=== PATIENT | male | born 2005 | race Caucasian/White ===

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

== ENCOUNTER 2025-07-27 09:47 | Outpatient (AMB) | payer OTHER, SELFPAY ==
--- NOTE | 2025-07-27 10:02 | A.OFFVIS_ITS ---
Vital Signs 07/27/25 10:08 Height 5 ft 11 in Weight 280 lb BMI 39.0 Intake Visit Reasons: OV- Lower Back Pain Intake Note: Quinton is a 19 year old male who presents today as a new patient for lower back pain. Patient was referred by his PCP. Patient states that for the past two years he has had lower back pain and groin pain. He states that the right sided groin pain was constant but then turned into back pain. He reports that he did have a X Ray's. At today's visit he states that he has attended physical therapy and he is continuing with his at home exercises. He states that he is currently on light duty at work which going well but is still having issues with some of his daily tasks. Patient added that over two years he had a pulling sensation on the right side of his stomach and radiated into the right side of his groin. He states that after his Urgent care visit 6 months ago he was given a steroid pills and ever since then he felt that his lower back pain has increased. Allergies Seasonal Allergies Adverse Reaction (Intermediate, Verified 07/27/25 10:09) Runny Nose Medication List - Last Reconciled 07/27/25 by Patricia Akbar MD albuterol sulfate 90 mcg/actuation (Ventolin HFA) inhalation cetirizine 10 mg PO DAILY fluticasone propionate 50 mcg/actuation 1 spray intranasal BID HPI Comments Details: 2 years ago, started in lower abdominal area and groin area. Described as tension and pain. Since moved to thigh, calf and lower back. Denies inciting injuries. Previous right knee fracture 2022 from wrestling. Knee disclocations. Has not wrestled since. High school lacrosse. Last PT 4 months ago. [facility] Social History (Updated 07/27/25 @ 10:10 by Antonella Grossman) Alcohol intake: current Alcohol intake frequency: holidays/special occasions only Patient Tobacco Use Status: Never used Tobacco Substance Use Type: Marijuana Current occupational status: employed Current occupation: Full- Pool Tech Review of Systems Const All systems reviewed & are unremarkable except as noted in HPI and below Physical Exam Exam Exam: Constitutional: Patient appears to be in no acute distress, well nourished and well developed. Patient was appropriately conversant and oriented. Good historian. MSK: No specific abnormalities found on inspection of the spine and all extremities. No pain with palpation over the lumbar area. Mild tenderness over right SI joint. Mild tenderness over right GT. No tenderness over right groin, abdominal wall, groin tendons. Lumbar ROM was full. Bilateral hip, knee and ankle ROM WNL. No ligamentous laxity or crepitance. No increased effusion. Straight-leg raising test negative. FABERE test negative. Strength is 5/5 in all muscle groups tested. No increased tone noted. Neurological: Neurologic examination of the upper and lower extremities was nonfocal with intact sensation, muscle stretch reflexes and without focal motor deficits . Smith?s negative bilaterally. Babinski was down going bilaterally. Clonus was negative. Gait is non-antalgic without loss of balance. Vital Signs: BMI result Body Mass Index 39.0 Results Reviewed Results Reviewed: I independently reviewed the results of the following: Lumbar x-ray as above I reviewed records from the following: PCP Assessment & Plan Assessment & Plan (1) History of patellar fracture: Code(s): Z87.81 - Personal history of (healed) traumatic fracture Category: Medical (2) Sacroiliac joint dysfunction of right side: Code(s): M53.3 - Sacrococcygeal disorders, not elsewhere classified Category: Medical (3) Right groin pain: Code(s): R10.31 - Right lower quadrant pain Category: Medical Plan Chronic right groin pain. History of right knee injury. Some tenderness over right SI joint on exam today. Lumbar x-rays done today showed preserved disc spaces. Await final reading. Very low suspicion that this is lumbar spine related. Getting right hip x-ray to rule out any hip joint pathology. Right knee x-ray due to previous history, question need for referral to ortho. Getting SI joint x-rays as well. Assessment and plan discussed with patient, and patient was agreeable. All questions were answered thoroughly. Follow up after results. Patricia Akbar MD, COLEMAN Board Certified, [place] Board of Physical Medicine and Rehabilitation (ABPMR) Board Certified, [place] Board of Electrodiagnostic Medicine (ABEM) Orders: Orders XR lumbar spine 2-3V Today M54.9 - Dorsalgia, unspecified XR hip RT min 2V Today M25.551 - Pain in right hip XR knee RT 3V Today Z87.81 - Personal history of (healed) traumatic fracture XR sacroiliac joint min 3V Today M53.3 - Sacrococcygeal disorders, not elsewhere classified Coding Level of Care Code New Pt Level 4 (06391) Diagnoses History of patellar fracture Z87.81 Sacroiliac joint dysfunction of right side M53.3 Right groin pain R10.31
[2025-07-27 10:08] VITALS: BMI 39.0
--- OUTSIDE RECORDS SUMMARY | 2025-07-27 11:18 | XMS_ITS | Encounter Summary ---
Author Organization [facility] Address [address] [place] [address] Phone Care Team Providers Care Machine Bobbin Winder Name Role Phone Gabriela Brooks DO Primary Care Provider [phone] Encounter Details Date Type Department Care Team (Late st Contact Info) Description 08/07/2011 Documentation [facility] [place] Medicine [address] [place], [place] [phone] Family Medicine, Physician [address] [place], [place] [address] Social History Tobacco Use Types Packs/Day Years Used Date Smoking Tobacco: Never Assessed Sex and Gender Information Value Date Recorded Sex Assigned at Not on file Legal Sex Male 5:22 PM EDT Gender Identity Not on file Sexual Orientation Straight 03/10/2023 9: 40 AM EDT documented as of this encounter Plan of Treatment Not on file documented as of this encounter Visit Diagnoses Not on filedocumented in this encounter Care Teams Machine Bobbin Winder Relationship Specialty Start Date End Date Gabriela Brooks DO [address] [facility] [place] [address] PCP - General 05/21/17 documented as of this encounter
--- OUTSIDE RECORDS SUMMARY | 2025-07-27 11:18 | XMS_ITS | Encounter Summary ---
Author Organization [facility] Address [address] [place] [address] Phone Care Team Providers Care Critical Power Install Technician Name Role Phone Gabriela Brooks DO Primary Care Provider [phone] Encounter Details Date Type Department Care Team (Late st Contact Info) Description 02/08/2013 Documentation [facility] [place] Family Medicine [address] [place], [place] [id number] Family Medicine, Physician [address] [place], [place] [address] Social History Tobacco Use Types Packs/Day Years [...] on filedocumented in this encounter Care Teams Critical Power Install Technician Relationship Specialty Start Date End Date Gabriela Brooks DO [address] [facility] [place] [address] PCP - General 05/21/17 documented as of this encounter
--- OUTSIDE RECORDS SUMMARY | 2025-07-27 11:18 | XMS_ITS | Clinical Summary ---
Author Organization [facility] Address [address] [place] [phone] Phone Care Team Providers Care Renewal Specialist Name Role Phone ToddGabriela tyler Primary Care Provider [phone] Allergies Active Allergy Reactions Criticality Noted Date Comments Environmental 05/01/2021 seasonal Medications Spacer/Aero-Holdi ng Chambers (AEROCHAMBER PLUS RENEE-VU) misc 5 Active cetirizine 10 MG tabletIndications :Seasonal allergic rhinitis due to pollen Take 1 tablet (10 mg total) by mouth once daily. 30 tablet 6 3 Active Ventolin HFA 108 (90 Base) MCG/ACT inhalerIndication s:Mild intermittent asthma without complication Inhale 2 puffs every 4 (four) hours as needed for wheezing or shortness of breath. 1 Units 5 06/04/20 26 Active fluticasone (Flonase) 50 MCG/ACT nasal sprayIndications: Seasonal allergic rhinitis due to pollen Administer 2 sprays into each nostril daily. 1 Units 6 5 06/04/20 26 Active Active Problems Problem Noted Date Diagnosed Date Chronic right-sided low back pain with right-racquel ed sciatica 06/04/2025 Assessment & Plan (06/04/2025 2:25 PM EDT): He had urgent care visit, x-rays and was referred to PT; I saw him for a follow- up visit and recommended that he resume PT since he only went for the initial eval He is doing somewhat better but has not gotten back into PT yet Joint laxity of left knee 06/04/2025 Assessment & Plan (06/04/2025 2:26 PM EDT): Either knee has been problematic but currently the left knee is most problematic Again-probably needs to see Ortho and needs PT Migraine without aura and wi thout status migrainosus, not intractable 10/06/2018 Overview (07/11/2021): Saw Dr. Winter- last seen On prn imitrex 50mg with 500mg motrin Consider re-trial topamax Previously: was on amitryp. 10mg(previous plan per Dr. Barfield) Assessment & Plan (03/10/2023 9:39 AM EDT): Motrin prn and sleeps it off Has had as needed Imitrex in the past Assessment & Plan (12/29/2021 11:29 AM EDT): Gets migraines if he does not stay hydrated and then exercises Assessment & Plan (07/11/2021 6:26 PM EDT): Migraines have been quiet- great! Assessment & Plan (05/02/2021 9:15 AM EDT): Not sure if recent HAs more related to suboptimal control of allergies Will see if he gets better w/ daily zyrtec and adding flonase Recheck in SEPT Assessment & Plan (03/24/2021 2:00 PM EDT): Has not needed imitrex in a long time Assessment & Plan (11/16/2020 12:49 PM EST): Not a problem this past year Autism spectrum disorder 07/29/2018 Overview (03/10/2023): HS grad 2022 Working in [employer] Had NS sindy @ [employer] 2017- dx with Autism; has new IEP; had school psychoed eval 2018- see pg 12. Assessment & Plan (12/29/2021 11:28 AM EDT): Wants to study operational engineering Plans [employer] Assessment & Plan (07/30/2018 10:10 AM EDT): I reviewed his records- I do not have a copy of this eval and mom will get it to me Tourette syndrome 01/14/2017 Overview (11/16/2020): Saw Dr. Winter/Neurol- no meds for tics FU 3 mo; get 504 plan for tics Assessment & Plan (03/10/2023 9:38 AM EDT): Tics are not problematic at the moment Not taking any meds and no longer seeing neurology Assessment & Plan (03/24/2021 1:59 PM EDT): Stable and maybe a bit less per teen Assessment & Plan (11/16/2020 12:48 PM EST): Appear stable and not bothersome No seeing neurol @ the moment ADHD (attention deficit hype ractivity disorder), combined type 06/19/2016 Overview (12/29/2021): Off all meds Was on Vyvanse and clonidine and yousuf Saw [facility] for meds/therapy; has ODD- had ICC partner; partial program [facility] 2018- DCed on topamax- did not tolerate Assessment & Plan (03/10/2023 9:39 AM EDT): Graduating from high school this year Has not been on meds for several years now Will be working in [email or web address] May consider going to [employer] at some point Assessment & Plan (12/29/2021 11:28 AM EDT): School going well- off meds for quite some time now Assessment & Plan (11/16/2020 12:47 PM EST): He is doing great w/ remote learning- less distractions Straight As Has a new job too! Off all psych meds! Assessment & Plan (07/30/2018 10:07 AM EDT): Is IHT is through [facility]; he is getting new therapist through [facility] Mild intermittent asthma without complication Overview (05/02/2021): Prn proair Off singulair and doing great Referred to [facility] in the past Assessment & Plan (06/04/2025 2:26 PM EDT): As needed Ventolin refilled Assessment & Plan (03/10/2023 9:38 AM EDT): Refilled as needed albuterol Uses inhaler infrequently Assessment & Plan (12/29/2021 11:29 AM EDT): +exercise induced signs and symptoms Try pre-exercise proair tx before sports- when he is cleared to return by ortho Assessment & Plan (05/02/2021 9:13 AM EDT): RFed proair for the schoolyear Assessment & Plan (11/16/2020 12:48 PM EST): No flares during pandemic Few exposures Inc singulair dose for age Assessment & Plan (08/07/2019 2:48 PM EDT): Mom req singulair RF- reports he has been compliant with taking it Allergic rhinitis 12/30/2012 Overview (07/11/2021): Trees, grass, pollen Zyrtec and flonase Assessment & Plan (03/10/2023 9:39 AM EDT): Refilled Zyrtec and Flonase Assessment & Plan (07/11/2021 6:26 PM EDT): Cont zyrtec and flonase daily Assessment & Plan (05/02/2021 9:15 AM EDT): Take zyrtec daily Added flonase Hoping HAs improve Resolved Problems Problem Noted Date Diagnosed Date Resolved Date Acute pain of right knee 11/23/2021 Overview (01/10/2022): Saw [facility] MAR22- MRI done, brace Rx'ed for when active, PT course advised, return to activities as tolerated, FU prn Assessment & Plan (12/29/2021 11:27 AM EDT): Needs to FU w/ Alisa on MRI and ?clearance to sports noted need for clearance by ortho on CAMILLE form Psychosocial stressors 03/17/202106/04 Overview (04/17/2022): JUN21: maternal great aunt has temporary custody See Luz Cazares calling for an update- 51A ( is a follow up to a report given to [facility] to prove or disprove alligation) PE reviewed. Nutrition referral advised. MICHELE chase 10/16/21- [facility] medical update; Leigh 04/17/22 - Leigh calling for medical update, update given. Assessment & Plan (03/10/2023 9:39 AM EDT): We will continue to live with aunt after high school graduation Assessment & Plan (12/29/2021 11:28 AM EDT): Doing well living w/ great aunt Not seeing mom- by choice Assessment & Plan (12/24/2021 9:42 AM EDT): 12/24/21 Leigh Merino [facility] Reymundo Wart Office calling [phone] -looking for a medical update / requested date of last PE - informed of pending PE as well Assessment & Plan (07/11/2021 6:27 PM EDT): Seems to be adjusting to school well Does not have contact w/ mom @ the moment Assessment & Plan (05/02/2021 9:18 AM EDT): 30d screen- things are good living w/ his aunt so far Assessment & Plan (03/24/2021 2:06 PM EDT): Teen is adjusting well to living w/ great aunt Updated his current med list He is doing great as far as psych and chronic med conditions go Off daily asthma meds Migraines infreq Tics are stable and maybe a bit better Needs 30d screen in a month Will need Menactra then Psychosocial stressors 01/08/202011/15 Overview (01/08/2020): Edelmira Farfan from [facility] office is calling on an active 51A. Update given. JL 01/08/2020 Joint pain of lower extremity 08/20/2018 11/15/2020 Overview (08/20/2018): Saw Dr. Tilley Rheum- re-referred back Assessment & Plan (08/20/2018 8:22 AM EST): Mom reports he was lost to F/U with Dr. Tilley sev years ago and that LE joint pains are still a recurr problem though teen states they not not been bothering him over the last 3mo. There is a strong FH of rheum and autoimm disease. Will refer back to Rheum. Acne vulgaris 07/29/2018 11/15/2020 Overview (07/30/2018): benzaclin Rx Assessment & Plan (07/30/2018 10:09 AM EDT): Mild case- DC grapefruit wash- too irritating; use Dove soap instead; add benzaclin gel 1-2x/day; consider retin A cream addition if worsens; Nocturnal enuresis 01/26/2018 Overview (10/16/2018): DDAVP rx by partial program 2017; seeing [facility]- cleanout and daily miralax ordered for constip on KUB; rec alarm; consider ditropan and prn ddavp; recheck in 6w.- Saw local urol previously Assessment & Plan (08/20/2018 8:19 AM EST): He had lots of notes on his research today. Not sure if any of these treatments are being used- consult with [facility] Urol to review what may be possible evidence based options. Anxiety 01/03/2014 12/29/2021 Overview (11/15/2020): Off all meds Saw Alonso Martinez psych med provider @ [facility]- on lexipro; prn hydroxyzine Assessment & Plan (11/15/2020 3:48 PM EST): Off all meds! Assessment & Plan (09/09/2017 8:31 AM EST): He was DCed from [facility] d/t no shows but now back in getting therapy and sees Mera Martinez for meds for ADD and anxiety; there have been issues with bullying on schoolbus- school has suspended the bullies and further action is pending- mom reports the DA is involved Encounters Date Type Department Care Team Description 07/18/[address] [address] Gabriela Brooks DO ortho RF 06/12/2025 Results Follow-Up [facility] [address] [place] [address] Quita Zamarripa LPN 06/04/2025 1:15 PM EDT Office Visit [address] [phone] Gabriela Brooks DO Well adult exam (Primary Dx); Screening for chlamydial disease; Need for vaccination; Mild intermittent asthma without complication; Encounter for screening examination for sexually transmitted disease; Dietary counseling and surveillance; Exercise counseling; Seasonal allergic rhinitis due to pollen; Chronic right-sided low back pain with right-sided sciatica; Joint laxity of left knee 05/10/2025 8:00 AM EDT Office Visit [facility] [address] [address] Gabriela Brooks DO Chronic right-sided low back pain with right-sided sciatica (Primary Dx) from Last 3 Months Immunizations Immunization Administration Dates Next Due DTaP 5 2008, 6,06/18/2005,05/04,03/23/2005 HPV Vaccine 9 Valent 05/05/2017,06/19/2016,05/01 Hep A, ped/adol 11/14/2014,01/03/2014 Hep B, ped/adol 07/29/2018, 5,05/04/2005,12/10 Hib (PRP-T) 03/18/2006, 5,05/04/2005,03/23 IPV 06/12/2009, 5,05/04/2005,03/23 Influenza Split 07/08/2012,07/01/2011 Influenza, injectable, quadrivalent 11/14/2014 Influenza, injectable, quadr ivalent, preservative free 07/11/2021,06/21/2020,08/07/2019,07/29,09/08/2017,06/19/2016,08/21/2015 ,07/19/2013 Influenza, injectable, trivalent 11/20/2009 Influenza, injectable, triva lent, preservative free 06/04/2025,06/02/2024 Influenza, intranasal, trivalent 06/30/2010 MMR 2008,2005 Meningococcal Conj (Menactra) MCV4P 05/01/2021,0 05/01/2016 Pneumococcal Conjugate 2005,2004,05/04/2005,03/23 Tdap 05/01/2016 Varicella 2008,2005 Family History Medical History Relation Name Comments Anxiety disorder Father Gricelda Asthma Father Gricelda Diabetes Father Gricelda Heart failure Father Gricelda Hyperlipidemia Father Gricelda Hypertension Father Gricelda Kidney failure Father Gricelda Neuropathy Father Gricelda Obesity Father Gricelda Heart attack Maternal Grandfather Heart defect Maternal Grandfather Lupus Maternal Grandmother Anxiety disorder Mother Shayla Bipolar disorder Mother Shayla Depression Mother Shayla Obesity Mother Shayla Rheum arthritis Mother Shayla Multiple sclerosis Mother's Sister Heart disease Paternal Grandmother Relation Name Status Comments Father Gricelda Alive Father: Asthma Maternal Grandfather Maternal Grandmother Alive Sjogren s syndrome Mother Shayla Alive Mother: Rheumat oid arthritis, anxiety/depression Mother's Sister Other No family histo ry of Thrombophilia, Family history of Cancer, colon, Family history of Diabetes mellitus, Family history of Obesity, Family history of cardiac, Family history of arthritis, Family history of Bipolar disorder Paternal Grandfather Alive Paternal Grandmother Alive Social History Tobacco Use Types Packs/Day Years Used Date Smoking Tobacco: Never Smokeless Tobacco: Never Hunger/Food Answer Date Recorded In the last 12 months, did y ou or your family ever eat less than you felt you should because there wasn't enough money for food? No 06/04/2025 Stable Housing Answer Date Recorded Are you worried that in the next 2 months you may not have stable housing? No 06/04/2025 Transportation Concerns Answer Date Rec orded In the last 12 months, have you or your family ever had to go without healthcare because you didn't have a way to get there? No 06/04/2025 Hazards in Home Answer Date Recorded Think about the place you li ve. Do you have problems with any of the following? Pests (mice or roaches), mold, no/not working smoke detectors, water leaks, no window guards. No 2024 Financing Utilities Answer Date Recorde d In the last 12 months, has t he electric, gas, oil, or water [employer] threatened to shut off your services in your home? No 06/04/2025 Safety at Home Answer Date Recorded Are you or your family worried about feeling saf e in your home? No 06/04/2025 Outside Support Answer Date Recorded Do you feel that you need mo re support from other people or programs to help you care for yourself or your family? No 06/04/2025 Understanding Health Concerns Answer Da te Recorded Do you need help understandi ng your or your child's healthcare needs (diagnosis, medications, plan, etc.)? No 06/04/2025 Financing Health Concerns Answer Date R ecorded In the last 12 months, was t here a time when your child needed to see a doctor or get medications or supplies but could not because of cost? No 06/04/2025 Missing School or Work Answer Date Benito rded Did you or your child miss s chool or work because of a health problem that could have been avoided? No 06/04/2025 Child Education Answer Date Recorded Do you have concerns about y our/your child's learning or behavior in school, preschool, or daycare? No 06/04/2025 Sex and Gender Information Value Date Recorded Sex Assigned at Not on file Legal Sex Male 5:22 PM EDT Gender Identity Not on file Sexual Orientation Straight 03/10/2023 9: 40 AM EDT Last Filed Vital Signs Vital Sign Reading Time Taken Comments Blood Pressure 109/76 06/04/2025 1:16 PM EDT Pulse 102 06/04/2025 1:16 PM EDT Temperature 36.9 C (98.5 F) 06/04/2025 1:16 PM EDT Respiratory Rate 18 09/08/2017 2:44 PM EST Oxygen Saturation - - Inhaled Oxygen Concentration - - Weight 130 kg (287 lb) 06/04/2025 1:16 PM EDT Height 180.3 cm (5' 11 ) 06/04/2025 1:16 PM EDT Body Mass Index 40.03 06/04/2025 1:16 PM EDT Plan of Treatment Health Maintenance Due Date Last Done Comments Men B Vaccine (1 of 2 - Standard) 2020 COVID-19 Vaccine ( - 2024-2 6 season) 2025 DTaP,Tdap,and Td Vaccines (7 - Td or Tdap) 05/01/2026 05/01/2016, 2008, 03/18/2006, Additional history exists Pneumococcal Vaccine Completed 2005, 06/18/2005, 05/04/2005, Additional history exists HIB Vaccines Completed 03/18/2006, 05/2005, 05/04/2005, Additional history exists MMR Vaccines Completed 2008, 2005 Varicella Vaccines Completed 2008, 2005 IPV Vaccines Completed 06/12/2009, 05/2005, 05/04/2005, Additional history exists Hepatitis A Vaccines Completed 11/14/2014, 01/04/20 14 HPV Vaccines Completed 05/05/2017, 06/2016, 05/01/2016 Hepatitis B Vaccines Completed 07/29/2018, 06/18/2005, 05/04/2005, Additional history exists Meningococcal Vaccine Completed 05/01/2021, 016 Influenza Vaccines Completed 06/04/2025, 0 06/02/2024, 07/11/2021, Additional history exists Procedures * Due to [place] [employer] law, this organization might not be sharing sensitive test results. Procedure Name Priority Date/Time Associated Diagnosis Comments CHLAMYDIA AND GONORRHEA, AMPLIFIED Routine 06/04/2025 1:56 PM EDT Screening for chlamydial disease BRIEF BEHAVIORAL ASSESSMENT - NORMAL(PSC,PHQ9,VAND ERBILT,ETC) Routine 06/04/2025 1:30 PM EDT Well adult exam EPSDT - ADDITIONAL SERVICES FOR STATE FUNDED INSURANCE Routine 06/04/2025 1:30 PM EDT Well adult exam from Last 3 Months Results * Due to [place] [employer] law, this organization might not be sharing sensitive test results. * Chlamydia and Gonorrhoea, Amplified (06/04/2025 1:56 PM EDT) C trach JOHAN Negative Negative [facility] N gonorrhoeae JOHAN Negative Negative [facility] Urine (Urine) 06/04/2025 1:5 6 PM EDT 06/04/2025 Comment:Urine Narrative [facility] - 06/05/2025 5:05 PM EDT Performed at: 01 - [facility] [address], [address], [place], [place] [id number] Skills Auditor: Hu Colunga MD, Phone: [phone] us Gabriela Brooks DO LAB MICROBIOLOGY - GENERAL ORDER GUILLERMO Final Result [facility] [address] [place] [address] from Last 3 Months Insurance [facility] NON PCC [facility] Care Teams Renewal Specialist Relationship Specialty Start Date End Date Gabriela Brooks DO [address] [place] [place] [address] PCP - General 05/21/17
--- OUTSIDE RECORDS SUMMARY | 2025-07-27 11:18 | XMS_ITS | Encounter Summary ---
Author Organization [facility] Address [address] [place] [address] Phone Care Team Providers Care Agricultural Equipment Design Engineer Name Role Phone Gabriela Brooks DO Primary Care Provider [phone] Encounter Details Date Type Department Care Team (Late st Contact Info) Description 02/26/2015 Documentation [facility] [place] [address] [place], [place] [id number] Family Medicine, Physician [address] [place], [place] 222561 Social History Tobacco Use Types Packs/Day Years [...] on filedocumented in this encounter Care Teams Agricultural Equipment Design Engineer Relationship Specialty Start Date End Date Gabriela Brooks DO 150 [facility] [place] [address] PCP - General 05/21/17 documented as of this encounter
--- OUTSIDE RECORDS SUMMARY | 2025-07-27 11:18 | XMS_ITS | Encounter Summary ---
Author Organization [facility] Address [address] [place] [address] Phone Care Team Providers Care Record Press Tender Name Role Phone Gabriela Brooks DO Primary Care Provider [phone] Encounter Details Date Type Department Care Team (Late st Contact Info) Description 01/30/2014 Documentation [facility] [place] [address] [place], [place] [id number] Family Medicine, Physician [address] [place], [place] 739841 Social History Tobacco Use Types Packs/Day Years [...] on filedocumented in this encounter Care Teams Record Press Tender Relationship Specialty Start Date End Date Gabriela Brooks DO 150 [facility] [place] [address] PCP - General 05/21/17 documented as of this encounter
--- OUTSIDE RECORDS SUMMARY | 2025-07-27 11:18 | XMS_ITS | Encounter Summary ---
Author Organization [facility] Address [address] [place] [address] Phone Care Team Providers Care Digital Associate Media Director Name Role Phone Gabriela Brooks DO Primary Care Provider [phone] Encounter Details Date Type Department Care Team (Late st Contact Info) Description 01/05/2011 Documentation [facility] [place] [address] [place], [place] [id number] Family Medicine, Physician [address] [place], [place] 949211 Social History Tobacco Use Types Packs/Day Years [...] on filedocumented in this encounter Care Teams Digital Associate Media Director Relationship Specialty Start Date End Date Gabriela Brooks DO 150 [facility] [place] [address] PCP - General 05/21/17 documented as of this encounter
--- OUTSIDE RECORDS SUMMARY | 2025-07-27 11:18 | XMS_ITS | Encounter Summary ---
Author Organization [facility] Address [address] [place] [address] Phone Care Team Providers Care Senior Technical Business Analyst Name Role Phone Gabriela Brooks DO Primary Care Provider [phone] Encounter Details Date Type Department Care Team (Late st Contact Info) Description 11/15/2014 Documentation [facility] [place] [address] [place], [place] [phone] Family Medicine, Physician [address] [place], [place] 573211 Social History Tobacco Use Types Packs/Day Years [...] on filedocumented in this encounter Care Teams Senior Technical Business Analyst Relationship Specialty Start Date End Date Gabriela Brooks DO 150 [facility] [place] [address] PCP - General 05/21/17 documented as of this encounter
--- OUTSIDE RECORDS SUMMARY | 2025-07-27 11:18 | XMS_ITS | Encounter Summary ---
Author Organization [facility] Address [address] [place] [address] Phone Care Team Providers Care Clinical Cytopathologist Name Role Phone Gabriela Brooks DO Primary Care Provider [phone] Encounter Details Date Type Department Care Team (Late st Contact Info) Description 04/05/2012 Documentation [facility] [place] Medicine [address] [place], [place] [phone] Family Medicine, Physician [address] [place], [place] 772641 Social History Tobacco Use Types Packs/Day Years [...] on filedocumented in this encounter Care Teams Clinical Cytopathologist Relationship Specialty Start Date End Date Gabriela Brooks DO 150 [facility] [place] [address] PCP - General 05/21/17 documented as of this encounter
--- OUTSIDE RECORDS SUMMARY | 2025-07-27 11:18 | XMS_ITS | Encounter Summary ---
Author Organization [facility] Address [address] [place] [address] Phone Care Team Providers Care Sponge Buffer Name Role Phone Gabriela Brooks DO Primary Care Provider [phone] Reason for Visit * Reason Comments Med Refill Encounter Details Date Type Department Care Team (Late st Contact Info) Description 03/03/2019 Refill [facility] [place] [address] [place] [address] Roula Altamirano MD 150 [place] [address] Mild intermittent asthma without complication Social History Tobacco Use Types Packs/Day Years Used Date Smoking Tobacco: Never Smokeless Tobacco: Never Hunger/Food Answer Date Recorded No 10/29/2018 Stable Housing Answer Date Recorded 0 10/29/2018 Transportation Concerns Answer Date Rec orded No 10/29/2018 Hazards in Home Answer Date Recorded No 10/29/2018 Financing Utilities Answer Date Recorde d Yes 10/29/2018 Safety at Home Answer Date Recorded No 10/29/2018 Outside Support Answer Date Recorded No 10/29/2018 Understanding Health Concerns Answer Da te Recorded No 10/29/2018 Financing Health Concerns Answer Date R ecorded No 10/29/2018 Missing School or Work Answer Date Benito rded No 10/29/2018 Sex and Gender Information Value Date Recorded Sex Assigned at Not on file Legal Sex Male 5:22 PM EDT Gender Identity Not on file Sexual Orientation Straight 03/10/2023 9: 40 AM EDT documented as of this encounter Plan of Treatment Not on file documented as of this encounter Visit Diagnoses Diagnosis Mild intermittent asthma without complication documented in this encounter Care Teams Sponge Buffer Relationship Specialty Start Date End Date Gabriela Brooks DO [address] [place] [address] [place]oi [address] PCP - General 05/21/17 documented as of this encounter
--- OUTSIDE RECORDS SUMMARY | 2025-07-27 11:18 | XMS_ITS | Encounter Summary ---
Author Organization [facility] Address [address] [place] [address] Phone Care Team Providers Care Guest Experience Manager Name Role Phone Gabriela Brooks DO Primary Care Provider [phone] Encounter Details Date Type Department Care Team (Late st Contact Info) Description 06/12/2025 Results Follow-Up [facility] [place] [address] [place] [address] Quita Zamarripa LPN 150 [place] [address] Social History Tobacco Use Types Packs/Day Years [...] t he electric, gas, oil, or water company threatened to shut off your services in [...] AM EDT documented as of this encounter Miscellaneous Notes * Result Encounter Note - Quita Zamarripa LPN - 06/12/2025 8:08 AM EDT Due to confidentiality of test, pt was advised that if result was negative we would not call at time of visit. documented in this encounter Plan of Treatment Not on file documented as of this encounter Visit Diagnoses Not on filedocumented in this encounter Care Teams Guest Experience Manager Relationship Specialty Start Date End Date Gabriela Brooks DO [address] [place] [address] [place] [address] PCP - General 05/21/17 documented as of this encounter
--- OUTSIDE RECORDS SUMMARY | 2025-07-27 11:19 | XMS_ITS | Encounter Summary ---
Author Organization [facility] Address [address] [place] [address] Phone Care Team Providers Care Teacher Of The Deaf Name Role Phone Gabriela Brooks DO Primary Care Provider [phone] Encounter Details Date Type Department Care Team (Late st Contact Info) Description 02/19/2010 Documentation [facility] [place] Medicine [address] [place], [place] [phone] Family Medicine, Physician [address] [place], [place] 758771 Social History Tobacco Use Types Packs/Day Years [...] on filedocumented in this encounter Care Teams Teacher Of The Deaf Relationship Specialty Start Date End Date Gabriela Brooks DO 150 [facility] [place] [address] PCP - General 05/21/17 documented as of this encounter
--- OUTSIDE RECORDS SUMMARY | 2025-07-27 11:19 | XMS_ITS | Encounter Summary ---
Author Organization [facility] Address [address] [place] [address] Phone Care Team Providers Care Boat Assembler Name Role Phone Gabriela Brooks DO Primary Care Provider [phone] Encounter Details Date Type Department Care Team (Late st Contact Info) Description 01/12/2017 Documentation [facility] [place] [address] [place], [place] [phone] Family Medicine, Physician [address] [employer] [place], [place] 6708[address] Social History Tobacco Use Types Packs/Day Years [...] on filedocumented in this encounter Care Teams Boat Assembler Relationship Specialty Start Date End Date Gabriela Brooks DO 150 [place] [address] PCP - General 05/21/17 documented as of this encounter
--- OUTSIDE RECORDS SUMMARY | 2025-07-27 11:19 | XMS_ITS | Encounter Summary ---
Author Organization [facility] Address [address] [place] [address] Phone Care Team Providers Care Shrink Pit Supervisor Name Role Phone Gabriela Brooks DO Primary Care Provider [phone] Encounter Details Date Type Department Care Team (Late st Contact Info) Description 05/27/2017 Conversion Encounter [facility] [place] [address] [place] [address] Social History Tobacco Use Types Packs/Day Years [...] on filedocumented in this encounter Care Teams Shrink Pit Supervisor Relationship Specialty Start Date End Date Gabriela Brooks DO 150 [place] [address] PCP - General 05/21/17 documented as of this encounter
== END 2025-07-27 10:55 | disposition home or self-care (01) ==
LOC: HO.HOS 09:48
PROVIDERS: Visit Provider Physical Medicine & Rehabilitation
DX: Z87.81 Personal history of (healed) traumatic fracture (principal); M53.3 Sacrococcygeal disorders, not elsewhere classified; R10.31 Right lower quadrant pain
CPT/HCPCS: 99204

== ENCOUNTER 2025-07-27 10:16 | Outpatient (REF) | payer OTHER, SELFPAY ==
--- NOTE | ~2025-07-27 | XR_ITS ---
EXAMINATION: XR SACROILIAC JOINTS CLINICAL INFORMATION: M53.3 - Sacrococcygeal disorders, not elsewhere classified COMPARISON: None available. TECHNIQUE: AP and oblique views of the sacroiliac joints FINDINGS: No acute cortical disruption. No lytic or blastic lesions. XR/XR sacroiliac joint min 3V IMPRESSION: Normal x-ray sacroiliac joints. Electronically signed by: Jae Kapoor MD 07/27/2025 10:53 AM EDT
--- NOTE | ~2025-07-27 | XR_ITS ---
EXAMINATION: XR KNEE, RIGHT CLINICAL INFORMATION: Z87.81 - Personal history of (healed) traumatic fracture COMPARISON: None available. TECHNIQUE: AP lateral and sunrise views of the right knee. FINDINGS: No acute cortical disruption or malalignment. No lytic or blastic lesions. Probable bony island, medial femoral condyle. No gross suprapatellar bursa joint effusion. No soft tissue calcifications. XR/XR knee RT 3V IMPRESSION: No acute fracture or dislocation. Electronically signed by: Jae Kapoor MD 07/27/2025 10:56 AM EDT
--- NOTE | ~2025-07-27 | XR_ITS ---
EXAMINATION: XR HIP, RIGHT CLINICAL INFORMATION: M25.551 - Pain in right hip COMPARISON: None available. TECHNIQUE: AP and oblique views of the right hip. FINDINGS: No acute cortical disruption or malalignment. No lytic or blastic lesions. Normal joint space. No metallic or radiopaque foreign body. No subcutaneous emphysema. 2 mm punctate calcification overlapping the bladder. XR/XR hip RT min 2V IMPRESSION: Normal x-ray right hip. Electronically signed by: Jae Kapoor MD 07/27/2025 10:54 AM EDT
--- NOTE | ~2025-07-27 | XR_ITS ---
CLINICAL HISTORY: M54.9 - Dorsalgia, unspecified 3 views lumbar spine Comparison: None provided Findings: Normal vertebral body alignment. No acute fractures or dislocation. No significant degenerative change. Exaggerated lordotic curvature of the lumbar spine. IMPRESSION: No acute findings. This document has been electronically signed by: Reuben Arredondo MD on 07/29/2025 19:04:57
== END 2025-07-27 10:17 | disposition home or self-care (01) ==
LOC: HO.HOSX 10:16
PROVIDERS: Visit Provider Physical Medicine & Rehabilitation
DX: M53.3 Sacrococcygeal disorders, not elsewhere classified (principal); R10.31 Right lower quadrant pain; Z87.81 Personal history of (healed) traumatic fracture; M25.551 Pain in right hip; M54.50 Low back pain, unspecified; Z79.899 Other long term (current) drug therapy
CPT/HCPCS: 72100; 72202; 73502; 73562; 99202

== ENCOUNTER → 2025-07-27 10:25 | Outpatient (BNV) | payer OTHER, SELFPAY | PROVIDERS: Visit Provider Radiology Diagnostic Radiology | DX: M25.551 Pain in right hip (principal); M53.3 Sacrococcygeal disorders, not elsewhere classified; Z87.81 Personal history of (healed) traumatic fracture | CPT/HCPCS: 72202; 73502; 73562 ==

== ENCOUNTER 2025-09-18 13:55 | Outpatient (REF) | payer OTHER, SELFPAY ==
--- NOTE | ~2025-09-18 | US_ITS ---
EXAMINATION: US BLADDER HISTORY: R10.31 - Right lower quadrant pain COMPARISON: There are no prior studies available for comparison. FINDINGS: Sonographic examination of the urinary bladder was performed before and after voiding. Before voiding, the urinary bladder measured 8.7 x 7.0 x 7.9, for an estimated volume of 252 mL. After voiding, the urinary bladder measured 1.6 x 0.9 x 3.1, for an estimated volume of 2.3 mL. No intrinsic bladder abnormality is identified. Bilateral ureteral jets are identified. The prostate measures 3.4 x 3.3 x 3.4 cm, for an estimated volume of 20.4 mL. US/US bladder IMPRESSION: 1. Unremarkable ultrasound of the urinary bladder. 2. Post void bladder residual of 2.3 mL. 3. Prostate volume of 20.4 mL. Electronically signed by: Rod Alanis MD 09/18/2025 02:27 PM [facility] [place]
--- OUTSIDE RECORDS SUMMARY | 2025-09-18 19:56 | XMS_ITS | Encounter Summary ---
Author Organization [facility] Address [address] [place] [address] Phone Care Team Providers Care Rotary Filter Operator Name Role Phone Gabriela Brooks DO Primary Care Provider Encounter Details Date Type Department Care Team (Late st Contact Info) Description 04/05/2012 Documentation [facility] [place] [address] [place], [place] [phone] Family Medicine, Physician [address] [place], [place] 129841 Social History Tobacco Use Types Packs/Day Years [...] on filedocumented in this encounter Care Teams Rotary Filter Operator Relationship Specialty Start Date End Date Gabriela Brooks DO 150 [facility] [place] [address] PCP - General 05/21/17 documented as of this encounter
--- OUTSIDE RECORDS SUMMARY | 2025-09-18 19:56 | XMS_ITS | Encounter Summary ---
Author Organization [facility] Address [address] [place] [address] Phone Care Team Providers Care Tying Machine Operator Lumber Name Role Phone Gabriela Brooks DO Primary Care Provider [phone] Encounter Details Date Type Department Care Team (Late st Contact Info) Description 08/07/2011 Documentation [facility] [place] [address] [place], [place] [phone] Family Medicine, Physician [address] [place], [place] 305641 Social History Tobacco Use Types Packs/Day Years [...] on filedocumented in this encounter Care Teams Tying Machine Operator Lumber Relationship Specialty Start Date End Date Gabriela Brooks DO 150 [facility] [place] [address] PCP - General 05/21/17 documented as of this encounter
--- OUTSIDE RECORDS SUMMARY | 2025-09-18 19:56 | XMS_ITS | Encounter Summary ---
Author Organization [facility] Address [address] [place] [address] Phone Care Team Providers Care Fence Post Driver Name Role Phone Gabriela Brooks DO Primary Care Provider [phone] Reason for Visit * Reason Comments Med Refill Encounter Details Date Type Department Care Team (Late st Contact Info) Description 03/03/2019 Refill [facility] [place] [address] [place] [address] Roula Altamirano MD 150 [facility] [place] [address] Mild intermittent asthma without complication Social History [...] complication documented in this encounter Care Teams Fence Post Driver Relationship Specialty Start Date End Date Gabriela Brooks DO [address] [place] [address] [place] [address] PCP - General 05/21/17 documented as of this encounter
--- OUTSIDE RECORDS SUMMARY | 2025-09-18 19:56 | XMS_ITS | Encounter Summary ---
Author Organization [facility] Address [address] [place] [address] Phone Care Team Providers Care Service Station Operator Name Role Phone Gabriela Brooks DO Primary Care Provider [phone] Encounter Details Date Type Department Care Team (Late st Contact Info) Description 01/30/2014 Documentation [facility] [place] [address] [place], [place] [phone] Family Medicine, Physician [address] [place], [place] 753391 Social History Tobacco Use Types Packs/Day Years [...] on filedocumented in this encounter Care Teams Service Station Operator Relationship Specialty Start Date End Date Gabriela Brooks DO 150 [place] [address] PCP - General 05/21/17 documented as of this encounter
--- OUTSIDE RECORDS SUMMARY | 2025-09-18 19:56 | XMS_ITS | Encounter Summary ---
Author Organization [facility] Address [address] [place] [address] Phone Care Team Providers Care Meat Sales And Storage Manager Name Role Phone Gabriela Brooks DO Primary Care Provider [phone] Encounter Details Date Type Department Care Team (Late st Contact Info) Description 01/12/2017 Documentation [facility] [place] [address] [place], [place] 2183[address] Family Medicine, Physician [address] [place], [place] 882731 Social History Tobacco Use Types Packs/Day Years [...] on filedocumented in this encounter Care Teams Meat Sales And Storage Manager Relationship Specialty Start Date End Date Gabriela Brooks DO 150 [facility] [place] [address] PCP - General 05/21/17 documented as of this encounter
--- OUTSIDE RECORDS SUMMARY | 2025-09-18 19:56 | XMS_ITS | Encounter Summary ---
Author Organization [facility] Address [address] [place] [address] Phone Care Team Providers Care Community Recreation Coordinator Name Role Phone Gabriela Brooks DO Primary Care Provider [phone] Encounter Details Date Type Department Care Team (Late st Contact Info) Description 01/05/2011 Documentation [facility] [place] [address] [place], [place] [phone] Family Medicine, Physician [address] [place], [place] 420661 Social History Tobacco Use Types Packs/Day Years [...] on filedocumented in this encounter Care Teams Community Recreation Coordinator Relationship Specialty Start Date End Date Gabriela Brooks DO 150 [facility] [place] [address] PCP - General 05/21/17 documented as of this encounter
--- OUTSIDE RECORDS SUMMARY | 2025-09-18 19:56 | XMS_ITS | Encounter Summary ---
Author Organization [facility] Address [address] [place] [address] Phone Care Team Providers Care Broodmare Foreman Name Role Phone Gabriela Brooks DO Primary Care Provider [phone] Encounter Details Date Type Department Care Team (Late st Contact Info) Description 02/08/2013 Documentation [facility] [place] [address] [place], [place] [phone] Family Medicine, Physician [address] [place], [place] 892171 Social History Tobacco Use Types Packs/Day Years [...] on filedocumented in this encounter Care Teams Broodmare Foreman Relationship Specialty Start Date End Date Gabriela Brooks DO 150 [place] [address] PCP - General 05/21/17 documented as of this encounter
--- OUTSIDE RECORDS SUMMARY | 2025-09-18 19:56 | XMS_ITS | Encounter Summary ---
Author Organization [facility] Address [address] [place] [address] Phone Care Team Providers Care Prison Classification Counselor Name Role Phone Gabriela Brooks DO Primary Care Provider [phone] Encounter Details Date Type Department Care Team (Late st Contact Info) Description 02/19/2010 Documentation [facility] [place] Family [place] [address] [place], [place] [phone] Family Medicine, Physician [address] [place], [place] 559511 Social History Tobacco Use Types Packs/Day Years [...] on filedocumented in this encounter Care Teams Prison Classification Counselor Relationship Specialty Start Date End Date Gabriela Brooks DO 150 [facility] [place] [address] PCP - General 05/21/17 documented as of this encounter
--- OUTSIDE RECORDS SUMMARY | 2025-09-18 19:56 | XMS_ITS | Clinical Summary ---
Author Organization [facility] Address [address] [place] [address] Phone Care Team Providers Care Transfer Knitter Name Role Phone ToddGabriela tyler Primary Care Provider [phone] Allergies Active Allergy Reactions Criticality Noted Date [...] Overview (03/10/2023): HS grad 2022 Working in [employer] Had NS sindy @ [employer] 2017- dx with Autism; has new IEP; had school psychoed eval 2018- see pg 12. Assessment & Plan (12/29/2021 11:28 AM EDT): Wants to study operational engineering Plans [employer] Assessment & Plan (07/30/2018 10:10 AM [...] has ODD- had [facility] partner; partial program [facility] [place]- DCed on topamax- did not tolerate Assessment & Plan (03/10/2023 9:39 AM EDT): Graduating from high school this year Has not been on meds for several years now Will be working in [employer] May consider going to [facility] at some point Assessment & Plan (12/29/2021 11:28 AM EDT): School going well- off meds for quite some time now Assessment & Plan (11/16/2020 12:47 PM EST): He is doing great w/ remote learning- less distractions Straight As Has a new job too! Off all psych meds! Assessment & Plan (07/30/2018 10:07 AM EDT): Is IHT is through [facility]; [place] [facility] calling [phone] -looking for a medical update / requested [...] stressors 01/08/202011/15 Overview (01/08/2020): Edelmira Farfan from [employer] office is calling on an active 51A. [...] DDAVP rx by partial program 2017; [facility]- cleanout and daily miralax ordered for constip on KUB; rec alarm; consider ditropan and prn ddavp; recheck in 6w.- Saw local urol previously Assessment & Plan (08/20/2018 8:19 AM EST): He had lots of notes on his research today. Not sure if any of these treatments are being used- consult with [facility] to review what may be possible evidence based options. Anxiety 01/03/2014 12/29/2021 Overview (11/15/2020): Off all meds Saw Alonso Martinez psych med provider @ [facility]- on lexipro; prn hydroxyzine Assessment & Plan (11/15/2020 3:48 PM EST): Off all meds! Assessment & Plan (09/09/2017 8:31 AM EST): He was DCed from [facility] d/t no shows but now back in getting therapy and sees Mera Martinez for meds for ADD and anxiety; there have been issues with bullying on schoolbus- school has suspended the bullies and further action is pending- mom reports the DA is involved Encounters Date Type Department Care Team Description 08/20/2025 Telephone [facility] [address] [place] [address] Quita Zamarripa LPN overdue labs 07/18/2025 Telephone [facility] - [address] [address] Gabriela Brooks DO ortho RF from Last 3 Months Immunizations Immunization Administration [...] of 2 - Standard) 2020 COVID-19 Vaccine (2024-2 6 season) 2025 DTaP,Tdap,and Td Vaccines (7 - Td or Tdap) 05/01/2026 05/01/2016, 2008, 03/18/2006, Additional history exists Pneumococcal Vaccine Completed 2005, 06/18/2005, 05/04/2005, Additional history exists HIB Vaccines Completed 03/18/2006, 0 05/2005, 05/04/2005, Additional history exists MMR Vaccines Completed 2008, 2005 Varicella Vaccines Completed 2008, 2005 IPV Vaccines Completed 06/12/2009, 0 05/2005, 05/04/2005, Additional history exists Hepatitis A Vaccines Completed 11/14/2014, 01/04/20 14 HPV Vaccines Completed 05/05/2017, 0 06/2016, 05/01/2016 Hepatitis B Vaccines Completed 07/29/2018, 06/18/2005, 05/04/2005, Additional history exists Meningococcal Vaccine Completed 05/01/2021, 016 Influenza Vaccines Completed 06/04/2025, 0 06/02/2024, 07/11/2021, Additional history exists Procedures * Due to [place] state law, this organization might not be sharing sensitive test results. Procedure Name Priority Date/Time Associated Diagnosis Comments CBC DIFFERENTIAL Routine 08/21/2025 9:02 AM EST Well adult exam LIPID PANEL, FASTING Routine 08/21/2025 9:02 AM EST Well adult exam from Last 3 Months Results * Due to [place] state law, this organization might not be sharing sensitive test results. * Lipid Panel, Fasting (08/21/2025 9:02 AM EST) Cholesterol, Total 161 100 - 199 mg/dL [facility] Triglycerides 58 0 - 149 mg/dL [facility] HDL 53 >39 mg/dL [facility] LDL Chol Calc 96 0 - 99 mg/dL [facility] Non-HDL Cholesterol 108 0 - 129 mg/dL [facility] Comment: Comment [facility] Comment: RECOMMENDED CUT POINTS FOR LIPID LEVELS IN CHILDREN AND ADOLESCENTS UP TO 19 YEARS OF AGE (IN mg/dL) : CATEGORY :ACCEPTABLE : BORDERLINE : HIGH : : : : : : :Total cholesterol : <170 : 170 - 199 : >199 : :Non-HDL cholesterol calc : <120 : 120 - 144 : >144 : :LDL : <110 : 110 - 129 : >129 : :Triglycerides(0-9 yrs) : <75 : 75 - 99 : >99 : :Triglycerides(10-19 yrs) : <90 : 90 - 129 : >129 : : : : : : : CATEGORY :ACCEPTABLE : BORDERLINE : LOW : : : : : : :HDL : >45 : 40 - 45 : <40 : : : : : : RECOMMENDED CUT POINTS FOR LIPID LEVELS IN YOUNG ADULTS 20 - 24 YEARS OLD (IN mg/dL) : CATEGORY :ACCEPTABLE : BORDERLINE : HIGH : : : : : : :Total cholesterol : <190 : 190 - 224 : >224 : :Non-HDL cholesterol calc : <150 : 150 - 189 : >189 : :LDL : <120 : 120 - 159 : >159 : :Triglycerides : <115 : 115 - 149 : >149 : : : : : : : CATEGORY :ACCEPTABLE : BORDERLINE : LOW : : : : : : :HDL : >45 : 40 - 45 : <40 : : : : : : NOTES: UP TO 9 YEARS OLD: If non-HDL cholesterol >144 mg/dL, HDL <40 mg/dL, LDL >129 mg/dL, triglycerides >100 mg/dL - repeat pediatric fasting lipd panel after 2 weeks, but within 3 months. 10 - 19 YEARS OLD: If non-HDL cholesterol >144 mg/dL, HDL <40 mg/dL, LDL >129 mg/dL, triglycerides >130 mg/dL - repeat pediatric fasting lipid panel after 2 weeks, but within 3 months. 20 - 24 YEARS OLD: If non-HDL cholesterol >189 mg/dL, HDL <40 mg/dL, LDL >159 mg/dL, triglycerides >150 mg/dL- repeat pediatric fasting lipd panel after 2 weeks, but within 3 months.[1] 1. Expert Panel on Integrated Guidelines for Cardiovascular Health and Risk Reduction in Children and Adolescents: Summary Report. Pediatrics 2011;128;S213 Blood 08/21/2025 9:02 AM EST 08/21/2025 Narrative [facility] - 08/22/2025 4:05 AM EST Performed at: 01 - [address], [address], [place], [place] [id number] Skip Locator: Hu Colunga MD, Phone: [phone] us Gabriela Brooks DO LAB BLOOD ORDERABLES Final Resul t [facility] [address] [place] [address] * CBC and Differential (08/21/2025 9:02 AM EST) WBC 6.6 3.4 - 10.8 x10E3/uL [facility] RBC 5.42 4.14 - 5.80 x10E6/uL [facility] HGB 14.5 13.0 - 17.7 g/dL [facility] HCT 46.0 37.5 - 51.0 % [facility] MCV 85 79 - 97 fL [facility] MCH 26.8 26.6 - 33.0 pg [facility] MCHC 31.5 31.5 - 35.7 g/dL [facility] RDW 13.0 11.6 - 15.4 % [facility] Platelets in Blood, Automated Count 295 150 - 450 x10E3/uL [facility] Neutrophils % 59 Not Estab. % [facility] Lymphocytes % 29 Not Estab. % [facility] Monocytes % 8 Not Estab. % [facility] Eosinophils % 2 Not Estab. % [facility] Basophil % 1 Not Estab. % [facility] Neutrophils Absolute 4.0 1.4 - 7.0 x10E3/uL [facility] Lymphocytes Absolute 1.9 0.7 - 3.1 x10E3/uL [facility] Monocytes Absolute 0.5 0.1 - 0.9 x10E3/uL [facility] Eosinophils Absolute 0.2 0.0 - 0.4 x10E3/uL [facility] Basophil Absolute 0.0 0.0 - 0.2 x10E3/uL [facility] Immature Granulocytes % 0 Not Estab. % [facility] Immature Granulocytes Absolute 0.0 0.0 - 0.1 x10E3/uL [facility] Blood 08/21/2025 9:02 AM EST 08/21/2025 Narrative [facility] - 08/21/2025 10:05 PM EST Performed at: - [facility] [id number] Skip Locator: Rylie Fisher MD, Phone: [phone] us Gabriela Brooks DO LAB BLOOD ORDERABLES Final Resul t [facility] [address] [place] [address] from Last 3 Months Insurance [facility] NON PCC [facility] ACO Care Teams Transfer Knitter Relationship Specialty Start Date End Date Gabriela Brooks DO [address] [place] [address] GRISEL Chicas [address] PCP - General 05/21/17
--- OUTSIDE RECORDS SUMMARY | 2025-09-18 19:56 | XMS_ITS | Encounter Summary ---
Author Organization [facility] Address [address] [place] [address] Phone Care Team Providers Care Meter Calibrator Name Role Phone Gabriela Brooks DO Primary Care Provider [phone] Encounter Details Date Type Department Care Team (Late st Contact Info) Description 02/26/2015 Documentation [facility] [place] [facility] [address] [place], [place] [phone] Family Medicine, Physician [address] [place], [place] [phone] Social History Tobacco Use Types Packs/Day Years [...] on filedocumented in this encounter Care Teams Meter Calibrator Relationship Specialty Start Date End Date Gabriela Brooks DO [address] [facility] [place] [address] PCP - General 05/21/17 documented as of this encounter
--- OUTSIDE RECORDS SUMMARY | 2025-09-18 19:56 | XMS_ITS | Encounter Summary ---
Author Organization [facility] Address [address] [place] [address] Phone Care Team Providers Care Solutions Operator Name Role Phone Gabriela Brooks DO Primary Care Provider [phone] Encounter Details Date Type Department Care Team (Late st Contact Info) Description 11/15/2014 Documentation [facility] [place] [address] [place], [place] [phone] Family Medicine, Physician [address] [place], [place] [phone] Social History Tobacco Use Types Packs/Day Years [...] on filedocumented in this encounter Care Teams Solutions Operator Relationship Specialty Start Date End Date Gabriela Brooks DO [address] [facility] [place] [address] PCP - General 05/21/17 documented as of this encounter
--- OUTSIDE RECORDS SUMMARY | 2025-09-18 19:57 | XMS_ITS | Encounter Summary ---
Author Organization [facility] Address [address] [place] [address] Phone Care Team Providers Care Insurance Account Representative Name Role Phone Gabriela Brooks DO Primary Care Provider [phone] Encounter Details Date Type Department Care Team (Late st Contact Info) Description 05/27/2017 Conversion Encounter [facility] [address] [place] [address] Social History Tobacco Use Types Packs/Day Years [...] on filedocumented in this encounter Care Teams Insurance Account Representative Relationship Specialty Start Date End Date Gabriela Brooks DO [address] [facility] [place] [address] PCP - General 05/21/17 documented as of this encounter
== END 2025-09-18 13:56 | disposition home or self-care (01) ==
LOC: HO.US 13:55
PROVIDERS: Visit Provider Physical Medicine & Rehabilitation
DX: R10.31 Right lower quadrant pain (principal)
CPT/HCPCS: 76857

== ENCOUNTER → 2025-09-18 13:58 | Outpatient (BNV) | payer OTHER, SELFPAY | PROVIDERS: Visit Provider Radiology Diagnostic Radiology | DX: R10.31 Right lower quadrant pain (principal) | CPT/HCPCS: 76857 ==

== ENCOUNTER 2025-09-21 08:52 | Outpatient (AMB) | payer OTHER, SELFPAY ==
--- NOTE | 2025-09-21 08:53 | MHC.OFFVIS ---
Vital Signs 09/21/25 08:58 Height 5 ft 11 in Weight 290 lb BMI 40.4 Intake Visit Reasons: OV- Follow up lower back pain Intake Note: Quinton is a 19 year old male who presents today as a follow up for his lower back pain. At last visit we sent him for a Ultrasound, 09/18/25. At today's visit he states that the lower back pain is feeling more manageable. He states that when he is doing strenuous activities is when the lower back pain starts to flair up. Pain scale- 2 Allergies Seasonal Allergies Adverse Reaction (Intermediate, Verified 07/27/25 10:09) Runny Nose Medication List - Last Reconciled 09/21/25 by Patricia Akbar MD albuterol sulfate 90 mcg/actuation (Ventolin HFA) inhalation cetirizine 10 mg PO DAILY fluticasone propionate 50 mcg/actuation 1 spray intranasal BID HPI Comments Details: 2 years ago, started in lower abdominal area and groin area. Described as tension and pain. Since moved to thigh, calf and lower back. Denies inciting injuries. Previous right knee fracture 2022 from wrestling. Knee disclocations. Has not wrestled since. High school lacrosse. Last PT earlier this year, went to [facility], April 2025. Abdominal pain resolved. If he would have pain recently, it would be lower back midline, could shoot down to right side. Would occur when picking up something or bending over. Can't shovel. Pain level today 2/10, most severe is 6-8/10. [facility] Social History (Updated 07/27/25 @ 10:10 by Antonella Grossman) Alcohol intake: current Alcohol intake frequency: holidays/special occasions only Patient Tobacco Use Status: Never used Tobacco Substance Use Type: Marijuana Current occupational status: employed Current occupation: [employer]- [employer] Physical Exam Exam Exam: Constitutional: Patient appears to be in no acute distress, well nourished and well developed. Patient was appropriately conversant and oriented. Good historian. MSK: No specific abnormalities found on inspection of the spine and all extremities. Continues to have tenderness over right SI joint. No tenderness over right groin, abdominal wall, groin tendons. Lumbar ROM should difficulty and pain with lumbar flexion and extension. Straight-leg raising test negative. FABERE test positive right. Strength is 5/5 in all muscle groups tested. No increased tone noted. Neurological: Neurologic examination of the upper and lower extremities was nonfocal with intact sensation, muscle stretch reflexes and without focal motor deficits . Gait is non-antalgic without loss of balance. Vital Signs: BMI result Body Mass Index 40.4 Results Reviewed Results Reviewed: Ordering Physician: Patricia Scott Date of Service: 09/18/25 Procedure(s): US bladder Accession Number(s): [id number] cc: Physician,Unknown ; Patricia Scott~ Reason for Exam: R10.31 - Right lower quadrant pain EXAMINATION: US BLADDER HISTORY: R10.31 - Right lower quadrant pain COMPARISON: There are no prior studies available for comparison. FINDINGS: Sonographic examination of the urinary bladder was performed before and after voiding. Before voiding, the urinary bladder measured 8.7 x 7.0 x 7.9, for an estimated volume of 252 mL. After voiding, the urinary bladder measured 1.6 x 0.9 x 3.1, for an estimated volume of 2.3 mL. No intrinsic bladder abnormality is identified. Bilateral ureteral jets are identified. The prostate measures 3.4 x 3.3 x 3.4 cm, for an estimated volume of 20.4 mL. US/US bladder IMPRESSION: 1. Unremarkable ultrasound of the urinary bladder. 2. Post void bladder residual of 2.3 mL. 3. Prostate volume of 20.4 mL. Electronically signed by: Rod Alanis MD 09/18/2025 02:27 PM [facility] [place] Ordering Physician: Patricia Scott Date of Service: 07/27/25 Procedure(s): XR lumbar spine 2-3V Accession Number(s): [id number] cc: Patricia Scott~ Reason for Exam: M54.9 - Dorsalgia, unspecified CLINICAL HISTORY: M54.9 - Dorsalgia, unspecified 3 views lumbar spine Comparison: None provided Findings: Normal vertebral body alignment. No acute fractures or dislocation. No significant degenerative change. Exaggerated lordotic curvature of the lumbar spine. IMPRESSION: No acute findings. This document has been electronically signed by: Reuben Arredondo MD on 07/29/2025 19:04:57 Ordering Physician: Patricia Scott Date of Service: 07/27/25 Procedure(s): XR sacroiliac joint min 3V Accession Number(s): [id number] cc: Patricia Pinedo Reason for Exam: M53.3 - Sacrococcygeal disorders, not elsewhere classified EXAMINATION: XR SACROILIAC JOINTS CLINICAL INFORMATION: M53.3 - Sacrococcygeal disorders, not elsewhere classified COMPARISON: None available. TECHNIQUE: AP and oblique views of the sacroiliac joints FINDINGS: No acute cortical disruption. No lytic or blastic lesions. XR/XR sacroiliac joint min 3V IMPRESSION: Normal x-ray sacroiliac joints. Electronically signed by: Jae Kapoor MD 07/27/2025 10:53 AM EDT [facility] Ordering Physician: Patricia Scott Date of Service: 07/27/25 Procedure(s): XR knee RT 3V Accession Number(s): [id number] cc: Patricia Pinedo Reason for Exam: Z87.81 - Personal history of (healed) traumatic fracture EXAMINATION: XR KNEE, RIGHT CLINICAL INFORMATION: Z87.81 - Personal history of (healed) traumatic fracture COMPARISON: None available. TECHNIQUE: AP lateral and sunrise views of the right knee. FINDINGS: No acute cortical disruption or malalignment. No lytic or blastic lesions. Probable bony island, medial femoral condyle. No gross suprapatellar bursa joint effusion. No soft tissue calcifications. XR/XR knee RT 3V IMPRESSION: No acute fracture or dislocation. Electronically signed by: Jae Kapoor MD 07/27/2025 10:56 AM EDT RP Ordering Physician: Patricia Scott Date of Service: 07/27/25 Procedure(s): XR hip RT min 2V Accession Number(s): [id number] cc: Patricia Pinedo Reason for Exam: M25.551 - Pain in right hip EXAMINATION: XR HIP, RIGHT CLINICAL INFORMATION: M25.551 - Pain in right hip COMPARISON: None available. TECHNIQUE: AP and oblique views of the right hip. FINDINGS: No acute cortical disruption or malalignment. No lytic or blastic lesions. Normal joint space. No metallic or radiopaque foreign body. No subcutaneous emphysema. 2 mm punctate calcification overlapping the bladder. XR/XR hip RT min 2V IMPRESSION: Normal x-ray right hip. Electronically signed by: Jae Kapoor MD 07/27/2025 10:54 AM EDT RP Assessment & Plan Assessment & Plan (1) Sacroiliac joint dysfunction of right side: Code(s): M53.3 - Sacrococcygeal disorders, not elsewhere classified Category: Medical Plan Abdominal pain resolved. Focal tenderness over right SI joint, consistent with the symptoms. He is on adequate conservative management including PT without relief. Recommended right SI joint injection with Dr. Titus and patient eager to proceed. Assessment and plan discussed with patient, and patient was agreeable. All questions were answered thoroughly. Follow up 1 month after injection. Patricia Akbar MD, COLEMAN Board Certified, [place] [employer] and Rehabilitation (ABPMR) Board Certified, [place] Board [employer] Electrodiagnostic Medicine (ABEM) Orders: Referrals Physiatry Referral M53.3 - Sacrococcygeal disorders, not elsewhere classified Coding Level of Care Code Est Pt Level 4 (43404) Diagnoses Sacroiliac joint dysfunction of right side M53.3
[2025-09-21 08:58] VITALS: BMI 40.4
== END 2025-09-21 09:34 | disposition home or self-care (01) ==
LOC: HO.HOS 08:52
PROVIDERS: Visit Provider Physical Medicine & Rehabilitation
DX: M53.3 Sacrococcygeal disorders, not elsewhere classified (principal)
CPT/HCPCS: 99213

== ENCOUNTER → 2025-09-21 08:52 | Outpatient (BNVA) | payer OTHER, SELFPAY | PROVIDERS: Visit Provider Physical Medicine & Rehabilitation | DX: M53.3 Sacrococcygeal disorders, not elsewhere classified (principal) | CPT/HCPCS: 99212 ==